=== PATIENT | male | born 1995 | race Caucasian/White ===

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

== ENCOUNTER 2017-07-11 14:24 | Day surgery (SDC) | payer OTHER ==
--- NOTE | 2017-07-11 15:34 | EDPHY ---
H & P Stated Complaint: L forearm Time Seen by Provider: 07/11/17 15:34 - Personal History Current Tetanus/Diphtheria Vaccine: Yes Current Tetanus Diphtheria and Acellular Pertussis (TDAP): Yes - Medical/Surgical History Hx Asthma: No Hx Chronic Respiratory Disease: No Hx Diabetes: No Hx Cardiac Disease: No Hx Renal Disease: No Hx Cirrhosis: No Hx Alcoholism: No Hx HIV/AIDS: No Hx Splenectomy or Spleen Trauma: No Other PMH: lower back problems, L wrist fx 2016, - Social History Smoking Status: Never smoked Constitutional: Initial Vital Signs Temperature (C) 37 C 07/11/17 15:01 Heart Rate 71 07/11/17 15:01 Respiratory Rate 16 07/11/17 15:01 Blood Pressure 134/85 H 07/11/17 15:01 O2 Sat (%) 98 07/11/17 15:01 O2 Delivery Mode Room Air Allergies/Adverse Reactions: No Known Allergies Allergy (Unverified 07/11/17 15:00) Home Medications: Medication Instructions Recorded NK [No Known Home Meds] 08/28/16 Medical Decision Making - Diagnostics Imaging: I viewed and interpreted images myself ED Course/Re-evaluation: CHIEF COMPLAINT: Left wrist injury HISTORY OF PRESENT ILLNESS: The patient is a 22 y/o male arriving with his parents complaining of a left wrist injury secondary to falling while snowboarding this afternoon. He was referred here from orthopedic urgent care across the street after he was told he would need surgery tonight for a displaced midshaft radius fracture. He fractured the same wrist 2 months ago and it did not require surgery. He was helmeted during the fall today, but may have bumped his head. There was no loss of consciousness. He did have subsequent dizziness, blurred vision, and decreased hearing for about 5 minutes following the event. He was nauseated for about 30 minutes, but this has resolved. He remembers the entire event. He is normally healthy. Last food intake last night, some water several hours ago. REVIEW OF SYSTEMS: A 10 point review of systems was performed and is negative with the exception of the elements mentioned in the history of present illness. PHYSICAL EXAM: HR, BP, O2 Sat, RR. Temp noted General Appearance: Alert, well hydrated, appropriate, and non-toxic appearing. Head: Atraumatic without scalp tenderness or obvious injury Eyes: Pupils equal, round, reactive to light and accommodation, EOMI, no trauma , no injection. Ears: Clear bilaterally, no hemotympanum, no perforation, normal landmarks Nose: Atraumatic, no rhinorrhea, clear. Throat: There is no erythema or exudates, no lesions, normal tonsils, mucus membranes moist. Neck: Supple, nontender, no lymphadenopathy. Respiratory: No retractions, no distress, no wheezes, and no accessory muscle use. Lungs are clear to auscultation bilaterally. Cardiovascular: Regular rate and rhythm, no murmurs, rubs, or gallops. Left radial pulse intact. Good capillary refill all extremities. Gastrointestinal: Abdomen is soft, nontender, non-distended, no masses, no rebound, no guarding, no peritoneal signs. Musculoskeletal: Left forearm currently splinted. Otherwise normal active ROM of all extremities, atraumatic. Neurological: Alert, appropriate, and interactive. The patient has non-focal cranial nerves, motor, sensory, and cerebellar exam. Skin: No rashes, good turgor, no nodules on palpation. Past medical history: Recent left wrist injury. Past surgical history: Denies Family history: Noncontributory Social history: [employer] Student. Parents at bedside. DIAGNOSTICS/PROCEDURES/CRITICAL CARE TIME: Left wrist x-ray from urgent care: displaced midshaft left radius fracture. DIFFERENTIAL DIAGNOSIS: The differential diagnosis for the patient's injury included but was not limited to fracture, ligamentous injury, contusion, muscular strain. MEDICAL DECISION MAKING: This is a healthy and well-appearing 22 y/o male who presents with a confirmed left radius fracture secondary to falling while snowboarding today. He was told by the orthopedist, Dr. Quintana, that he would need surgery tonight and was referred to the ED. He is neurovascularly intact distal to the injury. He did strike his head, but does not meet criteria for head imaging at this time. Plan for IV, preop labs, pain management, x-ray review, and orthopedic consult. 1549: Consulted with PA for Dr. Quintana, orthopedist. They plan to surgically repair patient's fracture tonight. Departure - Departure Disposition: [facility] Inpatient Acute Clinical Impression: Radius fracture Qualifiers: Encounter type: initial encounter Radius location: shaft Fracture type: closed Fracture morphology: transverse Fracture alignment: displaced Laterality: left Qualified Code(s): S52.322A - Displaced transverse fracture of shaft of left radius, initial encounter for closed fracture Concussion Qualifiers: Encounter type: initial encounter Loss of consciousness presence/duration: without LOC Qualified Code(s): S06.0X0A - Concussion without loss of consciousness, initial encounter Condition: Fair Referrals: [facility] [Other] - As per Instructions Report Scribed for: Torsten Mckeon Report Scribed by: Sasha Mosley Date of Report: 07/11/17 Time of Report: 15:43
[2017-07-11] MEDS ORDERED: HYDROmorphONE/DILAUDID 2 MG/ML INJ IVP ONE (16:09)
--- NOTE | 2017-07-11 16:55 | ASMTLACE ---
JAMEEL Acuity / Level of Answers: Yes Care: Did the patient have an inpatient admission? # of Emergency department Answers: 1-2 visits in the last 6 months Score: 4 Date Signed: 07/11/2017 04:55 PM Electronically Signed By:Jocelyn Cary RN
[2017-07-11] MEDS ORDERED: MIDAZOLAM 2 MG/2 ML VIAL IVP ONE (17:56)
--- NOTE | 2017-07-11 17:56 | PDANEPAE ---
ANE History of Present Illness FELL snowboarding, here for ORIF wrist ANE Past Medical History - Cardiovascular History Hx Hypertension: No Hx Arrhythmias: No Hx Chest Pain: No Hx Coronary Artery / Peripheral Vascular Disease: No - Pulmonary History Hx COPD: No Hx Asthma/Reactive Airway Disease: No Hx Recent Upper Respiratory Infection: No Hx Oxygen in Use at Home: No Hx Sleep Apnea: No - Endocrine History Hx Diabetes: No ANE Review of Systems Review of Systems: - Exercise capacity Exercise capacity: >=4 METS ANE Patient History - Allergies Allergies/Adverse Reactions: No Known Allergies Allergy (Unverified 07/11/17 15:00) - Home Medications Home Medications: Ibuprofen [Motrin (*)] 200 - 400 mg PO Q6H PRN 07/11/17 [Last Taken 07/11/17] - NPO status NPO Since - Liquids (Date): 07/11/17 NPO Since - Liquids (Time): 12:30 NPO Since - Solids (Date): 07/10/17 NPO Since - Solids (Time): 20:00 - Anes Hx Anes Hx: no prior problems - Smoking Hx Smoking Status: Never smoked - Alcohol Use Alcohol Use: None - Family Anes Hx Family Anes Hx: none ANE Labs/Vital Signs - Vital Signs Blood Pressure: 130/71 Heart Rate: 68 Respiratory Rate: 16 O2 Sat (%): 98 Height: 187.96 cm Weight: 74.843 kg ANE Physical Exam - Airway Neck exam: FROM Mallampati Score: Class 2 Mouth exam: normal dental/mouth exam - Pulmonary Pulmonary: no respiratory distress, clear to auscultation - Cardiovascular Cardiovascular: regular rate and rhythym, no murmur, rub, or gallop - ASA Status ASA Status: I ANE Anesthesia Plan Anesthesia Plan: GA w LMA
[2017-07-11] MEDS ORDERED: ceFAZolin 2 GM/SWFI 20 ML SYR IVP ONE (18:03)
[2017-07-11] MEDS ORDERED: PROPOFOL 200 MG/20 ML VIAL ONE ×2 (18:08)
[2017-07-11] MEDS ORDERED: fentaNYL 100 MCG/2 ML INJ ONE ×2 (18:08→20:13)
[2017-07-11] MEDS ORDERED: LIDOCAINE 2% 100 MG/5 ML SYR ONE (18:12)
[2017-07-11] MEDS ORDERED: MIDAZOLAM 2 MG/2 ML VIAL ONE (18:13)
[2017-07-11] MEDS ORDERED: BUPIVACAINE 0.5% 10 ML SDV ONE (18:15)
[2017-07-11] MEDS ORDERED: DEXAMETHASONE 4 MG/ML VIAL ONE (18:48)
[2017-07-11] MEDS ORDERED: ONDANSETRON 4 MG/2 ML VIAL ONE (18:48)
[2017-07-11] MEDS ORDERED: KETOROLAC 30 MG/1 ML SDV ONE (19:27)
[2017-07-11] MEDS ORDERED: OXYCODONE/APAP 5/325 TAB PO PRN (19:31)
[2017-07-11] MEDS ORDERED: NALOXONE HCL 0.4 MG/ML INJ IVP PRN (19:31)
[2017-07-11] MEDS ORDERED: HYDROCODONE/APAP 5/325 TAB PO PRN (19:31)
[2017-07-11] MEDS ORDERED: LR 500 ML IV PRN (19:31)
--- NOTE | 2017-07-11 19:46 | POSTANESTH ---
Post Anesthetic Evaluation Cardiovascular Status: Similar to Pre-Op Cond Respiratory Status: Similar to Pre-op Cond. Level of Consciousness/Mental Status: Can Participate in Eval Pain Control: Adequate, Prn Tx Ordered Nausea/Vomiting Control: Adequate, Prn Tx Ordered Complications Possibly Related to Anesthesia: None Noted
[2017-07-11 20:02] VITALS: O2SAT 100
[2017-07-11] MEDS ORDERED: OXYCODONE/APAP 5/325MG PREPACK#4 BTL TAKEHOME ONE (20:02)
[2017-07-11] MEDS ORDERED: CEPHALEXIN 500MG PREPACK#4 BTL TAKEHOME ONE ×2 (20:04→20:10)
--- NOTE | 2017-07-11 20:12 | GOP ---
[f rep st] OPERATIVE REPORT DATE OF OPERATION: 07/11/2017 SURGEON: Joe Quintana MD ANESTHESIA: General. PREOPERATIVE DIAGNOSIS: Left radial shaft fracture. POSTOPERATIVE DIAGNOSIS: Left radial shaft fracture. PROCEDURE PERFORMED: Open reduction, internal fixation, left radial shaft fracture (Galeazzi variant ). FINDINGS: DESCRIPTION OF PROCEDURE: The patient was taken to the operating room, administered general anesthes ia, placed in the supine position. The left upper extremity was prepped and draped in normal sterile fashion. Esmarch exam was performed, followed by elevation of brachial cuff to 225 mmHg pressure. A volar Davey approach was delineated with a marking pen and subsequently made with a 15 blade. It w as carried through dermal subcutaneous tissues. Sharp and blunt dissection was performed down to the flexor carpi radialis. The tendon sheath was divided through the flexor carpi radialis and then ext ended through the fascia proximally. The volar side of the flexor carpi radialis was then reflected. The volar side of the tendon sheath and the flexor carpi radialis was then incised. The distal rad ial fracture segment was uncovered underneath the thumb abductor and brachioradialis. The more proxi mal extent was interposed in the muscle mass of the forearm. We gently teased this off the more prox imal fracture line. A portion of the pronator teres had to be released. The fracture was then reapproximated by using a distraction maneuver. The fracture was then exposed through a slightly further periosteal elevation. We made room for a 6-hole plate. The plate was sec ured distally with 3.5 cortical screws and proximally 3.5 cortical screws. There were 3 screws on ea ch side of the fracture. A 6-hole DCP plate was utilized. We felt we had anatomic reduction. The distal radioulnar joint was visualized under fluoro and seemed to be appropriately aligned. It did not tend to flux or sublux w ith pronation, supination maneuvers. Irrigation was performed with normal saline. The fracture was then closed with a 3-0 Vicryl in the subcutaneous tissues followed by 4-0 nylon in the dermis. A simone rile compression dressing was applied, followed by a coaptation splint. The patient tolerated the procedure well, was transferred back to recovery in stable condition. Ther e were no operative complications. COMPLICATIONS: None. /[id number]/MODL
[2017-07-11] MEDS: fentaNYL 100 MCG/2 ML INJ IVP PRN ×2 (20:18→20:36)
[2017-07-11 20:36] VITALS: BP 141/89; PULSE 61; RESP 16; TEMP 97.2
== END 2017-07-11 21:20 | disposition home or self-care (01) ==
LOC: UNDOADMOB 16:07 → FSGY 16:33
PROVIDERS: ATTEND Orthopaedic Surgery Sports Medicine
PROC: 0PSJ04Z Reposition Left Radius with Internal Fixation Device, Open Approach (ICD-10-PCS; principal; 2017-07-11 17:30)
DX: S52.302A Unspecified fracture of shaft of left radius, initial encounter for closed fracture (principal)
CPT/HCPCS: C1713; J0690; J1100; J1170; J1885; J2001; J2250; J2405; J2704; J3010

== ENCOUNTER 2017-08-10 02:31 | Emergency (ER) | payer OTHER ==
[2017-08-10 02:36] VITALS: TEMP 98.2
[2017-08-10] MEDS ORDERED: NS 1,000 ML IV ONE ×2 (02:36)
[2017-08-10] MEDS ORDERED: ONDANSETRON 4 MG/2 ML VIAL IVP ONE (02:36)
--- NOTE | 2017-08-10 02:36 | EDPHY ---
H & P Stated Complaint: vomiting and diarrhea since 2199 just got back from [place] Time Seen by Provider: 08/10/17 02:35 HPI/ROS: HPI CHIEF COMPLAINT: Nausea, vomiting, diarrhea recently travel back from [place] [place] HISTORY OF PRESENT ILLNESS: This patient is a 22-year-old male, [employer] student, he was on spring break this past week and was vacationing in [place], he presents to the emergency room with nausea vomiting and diarrhea. He states this started suddenly around 10:00 p.m.. Had some generalized abdominal cramping that has since resolved. Denies any fever. Denies chest pain or shortness of breath. Complains of watery diarrhea watery vomit. He states decided come the emergency room as he had 4-5 episodes of this. Past Medical History: No significant medical history Past Surgical History: No significant surgical history Social History: [employer] student, just arrived back from vacation. Family History: Noncontributory ROS REVIEW OF SYSTEMS: A comprehensive 10 point review of systems is otherwise negative aside from elements mentioned in the history of present illness. Exam Constitutional appears well nontoxic no acute distress, vital signs stable triage nursing summary reviewed, vital signs reviewed, awake/alert. Eyes normal conjunctivae and sclera, EOMI, PERRLA. HENT normal inspection, atraumatic, moist mucus membranes, no epistaxis, neck supple/ no meningismus, no raccoon eyes. Respiratory clear to auscultation bilaterally, normal breath sounds, no respiratory distress, no wheezing. Cardiovascular rate normal, regular rhythm, no murmur, no edema, distal pulses normal. Gastrointestinal soft, non-tender, no rebound, no guarding, normal bowel sounds, no distension, no pulsatile mass. Genitourinary no CVA tenderness. Musculoskeletal no midline vertebral tenderness, full range of motion, no calf swelling, no tenderness of extremities, no meningismus, good pulses, neurovascularly intact. Skin pink, warm, & dry, no rash, skin atraumatic. Neurologic awake, alert and oriented x 3, AAOx3, moves all 4 extremities equally, motor intact, sensory intact, CN II-XII intact, normal cerebellar, normal vision, normal speech. Psychiatric normal mood/affect. Heme/Lymph/Immune no lymphadenopathy. Differential Diagnosis: Includes but is not limited to in a particular order dehydration, electrolyte disturbance, acute nausea vomiting and diarrhea, viral illness, ETEC, EHEC, other GI illness Medical Decision Making: Plan for this patient IV establishment IV fluid bolus , 2 L normal saline, IV Zofran for nausea, check basic blood work and re- evaluate. Re-evaluation: 0413: Re-examination at this time this patient is resting comfortably no acute distress. He has not any vomiting here. No diarrhea. His abdomen remained soft nontender. He would like to go home. He feels much better. He received 2 L of fluid here and Zofran. I discussed return precautions with him he understands return emergency room if develops worsening symptoms includes worsening abdominal pain fever vomiting. [place] diet over the next 48 hr. No spicy fatty greasy foods. Return precautions discussed he understands. Source: Patient - Personal History Current Tetanus/Diphtheria Vaccine: Yes Current Tetanus Diphtheria and Acellular Pertussis (TDAP): Yes - Medical/Surgical History Hx Asthma: No Hx Chronic Respiratory Disease: No Hx Diabetes: No Hx Cardiac Disease: No Hx Renal Disease: No Hx Cirrhosis: No Hx Alcoholism: No Hx HIV/AIDS: No Hx Splenectomy or Spleen Trauma: No Other PMH: lower back problems, L wrist fx 2017, Left wrist surgery - Social History Smoking Status: Never smoked Constitutional: Initial Vital Signs Temperature (C) 36.8 C 08/10/17 02:32 Heart Rate 108 H 08/10/17 02:32 Respiratory Rate 16 08/10/17 02:32 Blood Pressure 123/72 H 08/10/17 02:32 O2 Sat (%) 95 08/10/17 02:32 O2 Delivery Mode Room Air Allergies/Adverse Reactions: No Known Allergies Allergy (Verified 08/10/17 02:35) Home Medications: Medication Instructions Recorded NK [No Known Home Meds] 08/10/17 Medical Decision Making - Data Points Laboratory Results: Laboratory Results 08/10/17 02:50 08/10/17 02:50 08/10/17 08/10/17 02:50 02:50 WBC 11.73 10^3/uL H 10^3/uL (3.80-9.50) RBC 5.22 10^6/uL 10^6/uL (4.40-6.38) Hgb 16.5 g/dL g/dL (13.7-17.5) Hct 46.6 % % (40.0-51.0) MCV 89.3 fL fL (81.5-99.8) MCH 31.6 pg pg (27.9-34.1) MCHC 35.4 g/dL g/dL (32.4-36.7) RDW 12.5 % % (11.5-15.2) Plt Count 238 10^3/uL 10^3/uL (150-400) MPV 9.9 fL fL (8.7-11.7) Neut % (Auto) 87.1 % H % (39.3-74.2) Lymph % (Auto) 4.9 % L % (15.0-45.0) Fisher % (Auto) 6.0 % % (4.5-13.0) Eos % (Auto) 1.4 % % (0.6-7.6) Baso % (Auto) 0.2 % L % (0.3-1.7) Nucleat RBC Rel Count 0.0 % % (0.0-0.2) Absolute Neuts (auto) 10.22 10^3/uL H 10^3/uL (1.70-6.50) Absolute Lymphs (auto) 0.58 10^3/uL L 10^3/uL (1.00-3.00) Absolute Monos (auto) 0.70 10^3/uL 10^3/uL (0.30-0.80) Absolute Eos (auto) 0.16 10^3/uL 10^3/uL (0.03-0.40) Absolute Basos (auto) 0.02 10^3/uL 10^3/uL (0.02-0.10) Absolute Nucleated RBC 0.00 10^3/uL 10^3/uL (0-0.01) Immature Gran % 0.4 % % (0.0-1.1) Immature Gran # 0.05 10^3/uL 10^3/uL (0.00-0.10) Sodium 145 mEq/L mEq/L (135-145) Potassium 4.0 mEq/L mEq/L (3.5-5.2) Chloride 107 mEq/L mEq/L (97-110) Carbon Dioxide 25 mEq/l mEq/l (22-31) Anion Gap 13 mEq/L mEq/L (8-16) BUN 17 mg/dL mg/dL (7-23) Creatinine 0.8 mg/dL mg/dL (0.7-1.3) Estimated GFR > 60 Glucose 117 mg/dL H mg/dL (70-100) Calcium 10.1 mg/dL mg/dL (8.5-10.4) Total Bilirubin 0.7 mg/dL mg/dL (0.1-1.4) Conjugated Bilirubin 0.4 mg/dL mg/dL (0.0-0.5) Unconjugated Bilirubin 0.3 mg/dL mg/dL (0.0-1.1) AST 32 IU/L IU/L (17-59) ALT 48 IU/L IU/L (21-72) Alkaline Phosphatase 111 IU/L IU/L (38-126) Total Protein 8.0 g/dL g/dL (6.3-8.2) Albumin 4.7 g/dL g/dL (3.5-5.0) Lipase 40 IU/L IU/L (23-300) Medications Given: Discontinued Medications Sodium Chloride (Ns) 1,000 mls @ 0 mls/hr IV EDNOW ONE; Wide Open PRN Reason: Protocol Stop: 08/10/17 02:37 Last Admin: 08/10/17 02:50 Dose: 1,000 mls Sodium Chloride (Ns) 1,000 mls @ 0 mls/hr IV EDNOW ONE; Wide Open PRN Reason: Protocol Stop: 08/10/17 02:37 Last Admin: 08/10/17 02:51 Dose: 1,000 mls Ondansetron HCl (Zofran) 4 mg IVP EDNOW ONE Stop: 08/10/17 02:37 Last Admin: 08/10/17 02:51 Dose: 4 mg Departure - Departure Disposition: Home, Routine, Self-Care Clinical Impression: Vomiting and diarrhea Condition: Good Instructions: Traveler's Diarrhea (ED), Acute Nausea and Vomiting (ED) Additional Instructions: 1. [place] diet over the next 24-48 hours no spicy fatty greasy foods. 2. Return emergency room if develops severe abdominal pain continued to have vomiting, fever or you do not feel well. Referrals: NONE *PRIMARY CARE P,. [Primary Care Provider] - As per Instructions
[2017-08-10 03:19] LABS: PLATELET COUNT 238 10^3/uL (150-400)
[2017-08-10 04:28] VITALS: BP 113/56; PULSE 92; RESP 18; O2SAT 97
== END 2017-08-10 04:27 | disposition home or self-care (01) ==
DX: R11.10 Vomiting, unspecified (principal); R19.7 Diarrhea, unspecified; E86.9 Volume depletion, unspecified
CPT/HCPCS: 96374; J2405